=== PATIENT | female | born 1975 | race Caucasian/White ===

== ENCOUNTER 2018-09-02 20:18 | Emergency (ER) | payer BC ==
[2018-09-02] MEDS: ONDANSETRON 4 MG INJ IV (22:35)
[2018-09-02] MEDS: SOD CHLORIDE 0.9% 1,000 ML IV (22:35)
[2018-09-02] MEDS: morphine 4 MG/ML VIAL IV (22:36)
[2018-09-02 22:37] LABS: ADD MAN DIFF? NO
[2018-09-02 22:45] LABS: BASOPHIL # 0.1 10^3/ul (0.0-0.1); BASOPHILS % 0.5 % (0.0-2.0); EOSINOPHILS # 0.3 10^3/ul (0.0-0.5); EOSINOPHILS % 2.8 % (0.0-7.0); HEMATOCRIT 35.7 % (37.0-47.0); HEMOGLOBIN 11.1 g/dl (12.0-16.0); LYMPHOCYTES # 4.2 10^3/ul (0.8-2.9); LYMPHOCYTES % 34.8 % (15.0-51.0); MEAN CORPUSCULAR HEMOGLOBIN 24.9 pg (29.0-33.0); MEAN CORPUSCULAR HGB CONC 31.1 g/dl (32.0-37.0); MEAN PLATELET VOLUME 10.3 fl (7.4-10.4); MONOCYTE # 1.1 10^3/ul (0.3-0.9); NEUTROPHIL # 6.3 10^3/ul (1.6-7.5); NEUTROPHILS % 52.7 % (39.0-77.0); PLATELET COUNT 380 10^3/UL (140-415); RED BLOOD COUNT 4.46 10^6/ul (4.20-5.40)
[2018-09-02 22:52] LABS: ADD UMIC YES; UR ASCORBIC ACID NEGATIVE (NEGATIVE); UR BILIRUBIN (Dip) NEGATIVE (NEGATIVE); UR BLOOD (Dip) NEGATIVE (NEGATIVE); UR CLARITY CLEAR (CLEAR); UR COLOR YELLOW (YELLOW); UR GLUCOSE (Dip) NEGATIVE (NEGATIVE); UR KETONES (Dip) NEGATIVE (NEGATIVE); UR LEUKOCYTE ESTERASE (Dip) TRACE Leu/ul (NEGATIVE); UR NITRITE (Dip) NEGATIVE (NEGATIVE); UR RBC 2 /HPF (0-5); UR SQUAMOUS EPITHELIAL CELL FEW /HPF (FEW); UR TOTAL PROTEIN (Dip) NEGATIVE (NEGATIVE); UR UROBILINOGEN (Dip) NEGATIVE (NEGATIVE); UR WBC 2 /HPF (0-5)
[2018-09-02 23:01] LABS: ALANINE AMINOTRANSFERASE 23 IU/L (13-69); ALBUMIN 4.2 g/dl (3.3-4.9); ALKALINE PHOSPHATASE 112 IU/L (42-121); ANION GAP 9 (5-13); ASPARTATE AMINO TRANSFERASE 20 IU/L (15-46); BILIRUBIN,INDIRECT 0.2 mg/dl (0-1.1); BILIRUBIN,TOTAL 0.2 mg/dl (0.2-1.3); BLOOD UREA NITROGEN 14 mg/dl (7-20); CALCIUM 9.4 mg/dl (8.4-10.2); CARBON DIOXIDE 26 mmol/L (21-31); CHLORIDE 101 mmol/L (97-110); CREATININE 0.66 mg/dl (0.44-1.00); Estimated GFR > 60 mL/min (>60); GLUCOSE 131 mg/dl (70-220); LIPASE 84 U/L (23-300); POTASSIUM 3.8 mmol/L (3.5-5.1); SODIUM 136 mmol/L (135-144); TOTAL PROTEIN 7.7 g/dl (6.1-8.1)
== END 2018-09-03 00:54 | disposition home or self-care (01) ==
LOC: E/R 09-03 00:54
DX: D25.9 Leiomyoma of uterus, unspecified (principal); K63.89 Other specified diseases of intestine; R10.2 Pelvic and perineal pain
CPT/HCPCS: 36415; 74176; 76830; 76856; 80053; 81001; 81025; 83690; 85025; 96374; 96375; 99285-25

== ENCOUNTER 2019-04-18 05:14 | Inpatient (IN) | payer BC ==
[2019-04-18] MEDS: SOD CHLORIDE 0.9% 1,000 ML IV (06:54)
[2019-04-18] MEDS ORDERED: CEFAZOLIN 1 GM INJ (07:30)
[2019-04-18] MEDS ORDERED: SEVOFLURANE 15 MIN (07:30)
[2019-04-18] MEDS ORDERED: FENTAnyl 50 MCG/ML VIAL (07:31)
[2019-04-18] MEDS ORDERED: MIDAZOLAM 1 MG/ML 2 ML INJ (07:32)
[2019-04-18] MEDS ORDERED: morphine SULFATE/PF (10 MG/10 ML) INJ (07:32)
[2019-04-18] MEDS ORDERED: LIDOCAINE 2% (SDV) 5 ML INJ (09:05)
[2019-04-18] MEDS ORDERED: ROCURONIUM 50 MG INJ (09:05)
[2019-04-18] MEDS ORDERED: PROPOFOL 20 ML (09:05)
[2019-04-18] MEDS ORDERED: ONDANSETRON 4 MG INJ (09:25)
[2019-04-18] MEDS ORDERED: METOCLOPRAMIDE 10 MG INJ IV (10:00)
[2019-04-18] MEDS ORDERED: MEPERIDINE 25 MG INJ IV (10:00)
[2019-04-18] MEDS ORDERED: ONDANSETRON 4 MG INJ IV (10:00)
[2019-04-18] MEDS ORDERED: HYDROmorphONE 1 MG/5 ML IV SYRINGE IV (10:00)
[2019-04-18] MEDS ORDERED: DIPHENHYDRAMINE 50 MG INJ IV (10:00)
[2019-04-18] MEDS ORDERED: FENTAnyl 50 MCG/ML VIAL IV (10:00)
[2019-04-18] MEDS ORDERED: KETOROLAC 30 MG INJ IV (10:00)
[2019-04-18] MEDS ORDERED: OXYCODONE/ACETAMINOPHEN (5/325) TAB PO (10:00)
[2019-04-18] MEDS: HYDROmorphONE 1 MG/5 ML IV SYRINGE IV ×2 (12:23→12:31)
[2019-04-18] MEDS: LACTATED RINGER'S 1,000 ML IV ×3 (12:24→19:06)
[2019-04-18] MEDS: HYDROmorphONE 1 MG/ML SYG IV ×2 (16:26→20:59)
[2019-04-18] MEDS ORDERED: HYDROmorphONE 2 MG/ML SYG IV (16:30)
[2019-04-19] MEDS: HYDROmorphONE 1 MG/ML SYG IV ×3 (00:52→15:53)
[2019-04-19] MEDS ORDERED: HYDROCODONE/APAP (5/325) TAB PO ×3 (03:10→18:00)
[2019-04-19] MEDS: LACTATED RINGER'S 1,000 ML IV ×3 (03:18→18:48)
[2019-04-19] MEDS: HYDROCODONE/APAP (5/325) TAB PO ×3 (03:20→18:52)
[2019-04-19 05:15] LABS: ADD MAN DIFF? NO
[2019-04-19 05:22] LABS: BASOPHILS % 0.2 % (0.0-2.0); EOSINOPHILS # 0.1 10^3/ul (0.0-0.5); EOSINOPHILS % 0.6 % (0.0-7.0); HEMATOCRIT 32.6 % (37.0-47.0); LYMPHOCYTES # 2.5 10^3/ul (0.8-2.9); LYMPHOCYTES % 17.3 % (15.0-51.0); MEAN CORPUSCULAR HEMOGLOBIN 25.1 pg (29.0-33.0); MEAN CORPUSCULAR HGB CONC 30.7 g/dl (32.0-37.0); MEAN CORPUSCULAR VOLUME 81.7 fl (82.0-101.0); MEAN PLATELET VOLUME 10.5 fl (7.4-10.4); MONOCYTE # 1.1 10^3/ul (0.3-0.9); MONOCYTES % 7.6 % (0.0-11.0); NEUTROPHIL # 10.9 10^3/ul (1.6-7.5); NEUTROPHILS % 73.8 % (39.0-77.0); PLATELET COUNT 332 10^3/UL (140-415); RED BLOOD COUNT 3.99 10^6/ul (4.20-5.40); RED CELL DISTRIBUTION WIDTH 16.3 % (11.5-14.5)
[2019-04-19 05:22] LABS: WHITE BLOOD COUNT 14.7 10^3/ul (4.8-10.8)
[2019-04-19] MEDS: MAGNESIUM HYDROXIDE 30ML CUP PO ×2 (05:32→17:25)
[2019-04-19] MEDS: BISACODYL 10 MG SUPP PR ×3 (05:33→17:25)
[2019-04-19 05:49] LABS: ALANINE AMINOTRANSFERASE 30 IU/L (13-69); ALBUMIN 3.1 g/dl (3.3-4.9); ALBUMIN/GLOBULIN RATIO 1.06; ALKALINE PHOSPHATASE 68 IU/L (42-121); ANION GAP 6 (5-13); ASPARTATE AMINO TRANSFERASE 30 IU/L (15-46); BILIRUBIN,INDIRECT 0.7 mg/dl (0-1.1); BILIRUBIN,TOTAL 0.7 mg/dl (0.2-1.3); BLOOD UREA NITROGEN 7 mg/dl (7-20); CALCIUM 7.9 mg/dl (8.4-10.2); CARBON DIOXIDE 25 mmol/L (21-31); CHLORIDE 105 mmol/L (97-110); CREATININE 0.49 mg/dl (0.44-1.00); Estimated GFR > 60 mL/min (>60); GLUCOSE 136 mg/dl (70-220); POTASSIUM 4.1 mmol/L (3.5-5.1); SODIUM 136 mmol/L (135-144)
[2019-04-19] MEDS: ONDANSETRON 4 MG INJ IV (07:21)
[2019-04-19] MEDS: IBUPROFEN 800 MG TAB PO (15:41)
[2019-04-20] MEDS: LACTATED RINGER'S 1,000 ML IV ×2 (02:54→18:09)
[2019-04-20 05:21] LABS: ADD MAN DIFF? NO
[2019-04-20 05:28] LABS: WHITE BLOOD COUNT 12.2 10^3/ul (4.8-10.8)
[2019-04-20 05:28] LABS: BASOPHILS % 0.2 % (0.0-2.0); EOSINOPHILS # 0.3 10^3/ul (0.0-0.5); EOSINOPHILS % 2.5 % (0.0-7.0); HEMATOCRIT 28.5 % (37.0-47.0); LYMPHOCYTES # 2.7 10^3/ul (0.8-2.9); LYMPHOCYTES % 22.2 % (15.0-51.0); MEAN CORPUSCULAR HEMOGLOBIN 25.3 pg (29.0-33.0); MEAN CORPUSCULAR HGB CONC 31.6 g/dl (32.0-37.0); MEAN CORPUSCULAR VOLUME 80.1 fl (82.0-101.0); MEAN PLATELET VOLUME 10.9 fl (7.4-10.4); MONOCYTE # 1.1 10^3/ul (0.3-0.9); MONOCYTES % 9.1 % (0.0-11.0); NEUTROPHILS % 65.7 % (39.0-77.0); PLATELET COUNT 302 10^3/UL (140-415); RED BLOOD COUNT 3.56 10^6/ul (4.20-5.40); RED CELL DISTRIBUTION WIDTH 16.4 % (11.5-14.5)
[2019-04-20] MEDS: IBUPROFEN 800 MG TAB PO (09:50)
== END 2019-04-20 18:42 | disposition home or self-care (01) | DRG 743 ==
LOC: REC 05:14 → MS1 14:42
PROVIDERS: Obstetrics & Gynecology
PROC: 0UT90ZL Resection of Uterus, Supracervical, Open Approach (ICD-10-PCS; principal; 2019-04-18 07:29)
PROC: 0UT70ZZ Resection of Bilateral Fallopian Tubes, Open Approach (ICD-10-PCS; 2019-04-18 07:29)
PROC: 0UBC0ZZ Excision of Cervix, Open Approach (ICD-10-PCS; 2019-04-18 07:29)
PROC: 0USG0ZZ Reposition Vagina, Open Approach (ICD-10-PCS; 2019-04-18 07:29)
PROC: 0U520ZZ Destruction of Bilateral Ovaries, Open Approach (ICD-10-PCS; 2019-04-18 07:29)
DX: N80.0 Endometriosis of uterus (principal); N92.0 Excessive and frequent menstruation with regular cycle; E66.9 Obesity, unspecified; E28.2 Polycystic ovarian syndrome; E11.9 Type 2 diabetes mellitus without complications; E78.5 Hyperlipidemia, unspecified; G89.29 Other chronic pain; R10.2 Pelvic and perineal pain
CPT/HCPCS: 80053; 82962; 84702; 85025; 86850; 86900; 86901; 88307